=== PATIENT | female | born 1990 | race Caucasian/White ===

== ENCOUNTER → 2019-05-30 18:45 | Outpatient (BNVA) | payer SELFPAY | PROVIDERS: Visit Provider Nurse Practitioner | DX: J06.9 Acute upper respiratory infection, unspecified (principal); R05 Cough; R50.9 Fever, unspecified | CPT/HCPCS: 87804 ==

== ENCOUNTER 2019-11-21 18:11 | Emergency (ER) | payer SELFPAY ==
[2019-11-21 18:15] VITALS: BP 123/82; PULSE 75; RESP 17; TEMP 36.8; O2SAT 100
[2019-11-21 18:16] VITALS: BP 144/93; PULSE 76; RESP 14; TEMP 36.9; O2SAT 98; BMI 31.3
--- NOTE | 2019-11-21 18:29 | ED_ITS ---
HPI - Abdominal Pain General: Chief Complaint: Abdominal Pain Stated Complaint: flank pain Time Seen by Provider: 11/21/19 18:19 Source: patient Mode of arrival: ambulatory Limitations: no limitations History of Present Illness: HPI narrative: 28-year-old female was sent here from the urgent care for flank pain. States that flank pain is started today and is in her left flank. It radiates to her groin. She denies any tenderness. States pain is an 8 out of 10. She is had some nausea no vomiting. Denies any fever. MD elicited complaint: abdominal pain and flank pain Pertinent past history: diverticulitis Onset (ago): hour(s) Pain Consistency: constant Location: L flank Severity: severe Quality: stabbing Radiation: other (groin) Exacerbating factors: nothing Relieving factors: nothing Associated Symptoms: Denies chills, dysuria and fever(s) Review of Systems Const: Denies: fever(s), chills, body aches or change in appetite Eyes: Denies: blurry vision or eye discomfort ENMT: Denies: throat pain or dental pain Card: Denies: chest pain Resp: Denies: dyspnea GI: Reports: abdominal pain : Denies: dysuria Musc: Denies: neck pain or back pain Skin/Breast: Denies: rash Neuro: Denies: headache(s) Psych: Denies: depression Meliton/Lymph: Denies: easy bruising All/Imm: Denies: urticaria PFS ED PFSH: Social History (Updated 11/21/19 @ 17:19 by Brittni Ferguson LPN) Smoking and tobacco status: never smoked Alcohol intake: never Physical Exam Const: COMMON NORMALS: no acute distress, patient oriented x3 and healthy appearing HENMT: COMMON NORMALS: normocephalic and atraumatic HEAD & SCALP: normocephalic and atraumatic Eye: COMMON NORMALS: Equal, round and reactive pupils present and EOMs intact bilaterally PUPIL: Yes Equal, round and reactive pupils present Neck/C-Spine: COMMON NORMALS: full ROM and supple Chest: COMMONS NORMALS: normal inspection of the chest and normal palpation of entire chest wall Resp: COMMON NORMALS: normal respiratory effort, No retractions, No use of accessory muscles and clear to auscultation bilaterally AUSCULTATION: clear to auscultation bilaterally Cardio: COMMON NORMALS: regular rate, regular rhythm and No murmurs present (Cardio) RATE: regular rate RHYTHM: regular rhythm GI: COMMON NORMALS: Normal to inspection, nondistended, normoactive bowel sounds present, Soft to palpation, non-tender and no masses PALPATION: Yes Soft to palpation Extremity: COMMON NORMALS: normal to inspection and full ROM Neuro: COMMON NORMALS: patient oriented x3, moves all extremities and no focal motor deficits Psych: COMMON NORMALS: mental status grossly normal, Normal thought process present and cooperative THOUGHT PROCESS: Normal thought process present Skin: COMMON NORMALS: no rashes or lesions noted and no wounds GENERAL SKIN EXAM: no rashes or lesions noted Course Vital Signs: Vital signs: Vital Signs Temperature 98.5 F 11/21/19 18:16 Pulse Rate 80 11/21/19 20:03 Respiratory Rate 20 H 11/21/19 20:03 Blood Pressure 133/94 11/21/19 20:03 Pulse Oximetry 98 11/21/19 20:03 MDM - Abdominal Pain MDM Narrative: Medical decision making narrative: Patient presents with abdominal pain likely from constipation. Exam here is benign with no tenderness. CT showed a kidney stone and urinalysis and blood count are normal. We will place her on MiraLAX and she is to follow-up with primary care doctor in 2 to 4 days. She is return in 24 hours for repeat abdominal exam if she continues to have pain. Patient understands agrees to plan. Lab Data: Labs: Lab Results 11/21/19 11/21/19 11/21/19 Range/Units 19:10 19:10 19:13 WBC 9.9 (4.0-10.0) 10^3/ uL RBC 4.22 (4.1-5.3) 10^6/u L Hgb 12.6 (11.5-15.3) g/dL Hct 38.7 (37.0-47.0) % MCV 91.7 (81-99) fL MCH 29.9 (28.0-34.0) pg MCHC 32.6 (30.0-36.0) g/dL RDW 11.8 L (12.1-15.1) % Plt Count 311 (130-400) 10^3/c mm MPV 10.2 (7.4-10.4) fL Neut % (Auto) 50.5 % Lymph % (Auto) 40.1 % [place] % (Auto) 6.7 % Eos % (Auto) 2.0 % Baso % (Auto) 0.5 % Neut # (Auto) 4.99 (1.8-7.7) 10^3/u L Lymph # (Auto) 4.0 (0.8-4.8) 10^3/u L [place] # (Auto) 0.7 (0.2-0.9) 10^3/u L Eos # (Auto) 0.2 (0.0-0.8) 10^3/u L Baso # (Auto) 0.1 (0.0-0.1) 10^3/u L Nucleated RBC % (a uto) 0 % Nucleated RBCs # 0.0 /100WBC Sodium (136-145) mmol/L Potassium (3.5-5.1) mmol/L Chloride (98-107) mmol/L Carbon Dioxide (22-29) mmol/L Anion Gap (5-19) BUN (6-20) mg/dL Creatinine (0.5-0.9) mg/dL GFR Calculation (90-130) mL/min Glucose (65-115) mg/dL Calculated Osmolal ity (285-295) mOsm/k g Calcium (8.5-10.5) mg/dL Total Bilirubin (0.15-1.2) mg/dL AST (0-32) U/L ALT (0-33) U/L Alkaline Phosphata se (35-105) IU/L Total Protein (6.6-8.7) g/dL Albumin (3.5-5.2) g/dL Globulin (1.3-4.6) g/dL Lipase (13-60) U/L HCG, Qual Negative (Negative) Urine Color Straw (Yellow) Urine Appearance Clear (CLEAR) Urine pH 6.5 (5-7) Ur Specific Gravit y 1.015 (1.005-1.030) Urine Protein Neg (Negative) Urine Glucose (UA) Norm (Normal) Urine Ketones Negative (Negative) Urine Blood Neg (Negative) Urine Nitrate Negative (Negative) Urine Bilirubin Neg (NEGATIVE) Urine Urobilinogen Norm (Negative) mg/dL Ur Leukocyte Misty ase Negative (Negative) 11/21/19 Range/Units 19:13 WBC (4.0-10.0) 10^3/ uL RBC (4.1-5.3) 10^6/u L Hgb (11.5-15.3) g/dL Hct (37.0-47.0) % MCV (81-99) fL MCH (28.0-34.0) pg MCHC (30.0-36.0) g/dL RDW (12.1-15.1) % Plt Count (130-400) 10^3/c mm MPV (7.4-10.4) fL Neut % (Auto) % Lymph % (Auto) % [place] % (Auto) % Eos % (Auto) % Baso % (Auto) % Neut # (Auto) (1.8-7.7) 10^3/u L Lymph # (Auto) (0.8-4.8) 10^3/u L [place] # (Auto) (0.2-0.9) 10^3/u L Eos # (Auto) (0.0-0.8) 10^3/u L Baso # (Auto) (0.0-0.1) 10^3/u L Nucleated RBC % (a uto) % Nucleated RBCs # /100WBC Sodium 137 (136-145) mmol/L Potassium 3.6 (3.5-5.1) mmol/L Chloride 100 (98-107) mmol/L Carbon Dioxide 26 (22-29) mmol/L Anion Gap 14.6 (5-19) BUN 10 (6-20) mg/dL Creatinine 0.7 (0.5-0.9) mg/dL GFR Calculation 98.9 (90-130) mL/min Glucose 89 (65-115) mg/dL Calculated Osmolal ity 279 L (285-295) mOsm/k g Calcium 9.5 (8.5-10.5) mg/dL Total Bilirubin 0.3 (0.15-1.2) mg/dL AST 19 (0-32) U/L ALT 13 (0-33) U/L Alkaline Phosphata se 66 (35-105) IU/L Total Protein 7.2 (6.6-8.7) g/dL Albumin 4.6 (3.5-5.2) g/dL Globulin 2.6 (1.3-4.6) g/dL Lipase 19 (13-60) U/L HCG, Qual (Negative) Urine Color (Yellow) Urine Appearance (CLEAR) Urine pH (5-7) Ur Specific Gravit y (1.005-1.030) Urine Protein (Negative) Urine Glucose (UA) (Normal) Urine Ketones (Negative) Urine Blood (Negative) Urine Nitrate (Negative) Urine Bilirubin (NEGATIVE) Urine Urobilinogen (Negative) mg/dL Ur Leukocyte Misty ase (Negative) Imaging Data ^: CT Abd/Pel: Radiologist's impression: [address] [address] [address] Scan Report Signed Patient: Ela Greene Unit #: [id number] : 1990 [id number] Age/Sex: 28 / F ADM Date: 11/21/19 Loc: ER Room/Bed: Attending Dr: Ordering Provider/Ordering MD: Von Christopher MD Date of Service: 11/21/19 Procedure(s): CT kidney stone 71103 Accession Number(s): [id number] Report Number: [id number] PROCEDURE INFORMATION: Exam: CT Abdomen And Pelvis Without Contrast Exam date and time: 11/21/2019 6:31 PM Age: 28 years old Clinical indication: Nausea; Abdominal pain; Flank; Left; Prior surgery; Surgery type: Appy, tubal; Patient HX: HX diverticulitis; Additional info: L flank pain TECHNIQUE: Imaging protocol: Computed tomography of the abdomen and pelvis without contrast. Radiation optimization: All CT scans at this facility use at least one of these dose optimization techniques: automated exposure control; mA and/or kV adjustment per patient size (includes targeted exams where dose is matched to clinical indication); or iterative reconstruction. COMPARISON: CT Abdomen/Pelvis Renal [id number] 12/22/2016 2:21 PM RADIATION DOSE METRICS: Total DLP (mGy-cm): 1578.22 FINDINGS: The lung bases are clear. The visualized bony structures are unremarkable. There is no liver mass. There is no intrahepatic biliary dilatation. No gallstones are seen within the gallbladder. The pancreas is unremarkable. The spleen is unremarkable. There is no adrenal mass. There is no hydronephrosis. There are no renal calculi. There is no perinephric stranding. There is no renal mass. The ureters are normal in caliber. No calculi are seen along the course of the ureters. The bladder is unremarkable. The aorta is normal in caliber. The IVC is normal in caliber. There is no retroperitoneal adenopathy. There is no mesenteric adenopathy. The stomach is unremarkable. The small bowel loops in the upper abdomen are nondistended with no bowel wall thickening. Feces is seen throughout the colon. Colonic diverticuli are present. Within the pelvis:The patient is status post appendectomy. The uterus is unremarkable. There is a 2.3 cm right ovarian cyst. The left adnexa is unremarkable. The click free fluid There is no inguinal adenopathy. There is no pelvic adenopathy. Feces is seen within the rectosigmoid. CT/CT kidney stone [id number] IMPRESSION: 1. No hydronephrosis. No renal or ureteral calculi. Please note the lack of IV contrast limits evaluation of the renal parenchyma for pyelonephritis. 2. Moderate fecal burden suggesting constipation. 3. Colonic diverticulosis. No evidence for acute diverticulitis. Discharge Plan Discharge Patient Disposition: Home Clinical Impression: Constipation Qualifiers: Constipation type: unspecified constipation type Qualified Code(s): K59.00 - Constipation, unspecified Condition: Stable Prescriptions: New Miralax 17 gram/dose powder 17 gm PO DAILY PRN (Reason: constipation) Qty: 119 RF: 0 Naprosyn 500 mg tablet 500 mg PO BID PRN (Reason: pain) Qty: 20 RF: 0 No Action bupropion HCl [Wellbutrin SR] 150 mg tablet sustained-release 12 hr 150 mg PO DAILY RF: 0 buprenorphine HCl 2 mg tablet, sublingual 2 mg SUBLINGUAL DAILY RF: 0 valacyclovir 500 mg tablet 500 mg PO DAILY RF: 0 Discharge Orders: Discharge Order (Routine); Ordered 11/21/19 Ordered By: Von Christopher Referrals: Leilani Garibay FNP [Primary Care Provider] - 1-3 days Discharge Diet: Advance as tolerated Discharge Activity: Resume usual activity Patient Instructions: Constipation (ED) Discharge Date/Time: 11/21/19 20:21 Coding Level of Care Code ED Cash Posting Representative for Chg Fwd Exam Comprehensive
[2019-11-21 19:17] LABS: Add Urine Microscopic? NO
[2019-11-21] MEDS: sodium chloride 0.9% 1,000 ML 999 ML IV (19:28)
[2019-11-21] MEDS: ondansetron 2 mg/ML SDV 2 mL 4 MG IVP (19:28)
[2019-11-21 19:31] LABS: Bilirubin Urine Neg (NEGATIVE); Blood Urine Neg (Negative); Glucose Urine UA Norm (Normal); HCG Qualitative Urine. Negative (Negative); Ketones Urine Negative (Negative); Leukocyte Esterase Urine Negative (Negative); Nitrate Urine Negative (Negative); Protein Urine Neg (Negative); Specific Gravity, Urine 1.015 (1.005-1.030); Urine Appearance Clear (CLEAR); Urine Color Straw (Yellow); Urobilinogen Urine Norm (Negative); pH Urine 6.5 (5-7)
[2019-11-21 19:37] LABS: Alanine Aminotransferase 13 U/L (0-33); Albumin Level 4.6 g/dL (3.5-5.2); Alkaline Phosphatase 66 IU/L (35-105); Anion Gap 14.6 (5-19); Aspartate Amino Transferase 19 U/L (0-32); Blood Urea Nitrogen 10 mg/dL (6-20); Calcium 9.5 mg/dL (8.5-10.5); Carbon Dioxide 26 mmol/L (22-29); Chloride 100 mmol/L (98-107); Globulin 2.6 g/dL (1.3-4.6); Glomerular Filtration Rate 98.9 mL/min (90-130); Glucose 89 mg/dL (65-115); Lipase 19 U/L (13-60); Osmolality Calculated 279 mOsm/kg (285-295); Potassium 3.6 mmol/L (3.5-5.1); Sodium 137 mmol/L (136-145); Total Bilirubin 0.3 mg/dL (0.15-1.2); Total Protein 7.2 g/dL (6.6-8.7)
[2019-11-21 19:38] LABS: Basophils # 0.1 10^3/uL (0.0-0.1); Basophils % 0.5 %; Eosinophils # 0.2 10^3/uL (0.0-0.8); Hematocrit 38.7 % (37.0-47.0); Hemoglobin 12.6 g/dL (11.5-15.3); Lymphocytes % 40.1 %; Mean Corpuscular HGB Conc 32.6 g/dL (30.0-36.0); Mean Corpuscular Hemoglobin 29.9 pg (28.0-34.0); Mean Corpuscular Volume 91.7 fL (81-99); Mean Platelet Volume 10.2 fL (7.4-10.4); Monocytes # 0.7 10^3/uL (0.2-0.9); Monocytes % 6.7 %; Neutrophils # 4.99 10^3/uL (1.8-7.7); Neutrophils % 50.5 %; Nucleated Red Blood Cells % 0 %; Platelet Count 311 10^3/cmm (130-400); Red Blood Count 4.22 10^6/uL (4.1-5.3); Red Cell Distribution Width 11.8 % (12.1-15.1); White Blood Count 9.9 10^3/uL (4.0-10.0)
[2019-11-21 19:58] VITALS: RESP 20; O2SAT 98
[2019-11-21] MEDS: HYDROmorphone 1 mg/mL INJ 1 mL IVP (19:58)
[2019-11-21 20:03] VITALS: BP 133/94; PULSE 80; RESP 20; O2SAT 98
== END 2019-11-21 20:21 | disposition home or self-care (01) ==
PROVIDERS: Emergency Provider Emergency Medicine; PCP Nurse Practitioner
DX: K59.00 Constipation, unspecified (principal)
CPT/HCPCS: 12345; 74176; 80053; 81000; 81003; 81025; 83690; 85025; 96361; 96374; 96375; 99283; J1170; J2405; J7030

== ENCOUNTER → 2020-12-06 14:35 | Outpatient (BNVA) | payer MEDICAID, SELFPAY | PROVIDERS: PCP Physician Assistant Medical; Visit Provider Nurse Practitioner | DX: R10.9 Unspecified abdominal pain (principal) | CPT/HCPCS: 81000 ==

== ENCOUNTER → 2021-08-04 15:24 | Outpatient (BNVA) | payer MEDICAID, SELFPAY | PROVIDERS: PCP Physician Assistant Medical; Visit Provider Family Medicine | DX: N89.8 Other specified noninflammatory disorders of vagina (principal) | CPT/HCPCS: 81000; 87086; 87491; 87591; 87661 ==

== ENCOUNTER → 2021-08-20 16:17 | Outpatient (BNVA) | payer MEDICAID, SELFPAY | PROVIDERS: PCP Physician Assistant Medical; Visit Provider Family Medicine | DX: J02.9 Acute pharyngitis, unspecified (principal) | CPT/HCPCS: 87880 ==

== ENCOUNTER 2022-09-07 13:12 | Emergency (ER) | payer MEDICAID, SELFPAY ==
[2022-09-07] VITALS (46 sets, daily range): BP systolic 109–142; BP diastolic 73–104; PULSE 69–92; RESP 13–27; TEMP 36.6; O2SAT 96–100; BMI 30.4
--- NOTE | 2022-09-07 13:24 | ECG_ITS ---
[facility] Test Date: 2022-09-07 Pat Name: Ela Interiano Department: Room: Gender: Female Cylinder Honer: : 1990 Requested By: Scooby Ness Order Number: [id number] Tanya MD: Edwin Lainez M.D. Measurements Intervals [place] Rate: 85 P: 125 [place]: 130 QRS: 119 QRSD: 86 T: 84 QT: 343 QTc: 408 Interpretive Statements SINUS RHYTHM LEFT POSTERIOR FASCICULAR BLOCK [QRS AXIS > 109, INFERIOR Q] INTERPRETATION BASED ON A DEFAULT AGE OF 40 YEARS No previous ECG available for comparison Electronically Signed On 09-08-2022 0:10:00 CDT by Edwin Lainez M.D. [id number]
--- NOTE | 2022-09-07 13:35 | XRR_ITS ---
PROCEDURE INFORMATION: Exam: XR Chest Exam date and time: 09/07/2022 2:03 PM Age: 31 years old Clinical indication: Angina; Additional info: Cp TECHNIQUE: Imaging protocol: Radiologic exam of the chest. Views: 1 view. COMPARISON: CT kidney stone [id number] 11/21/2019 7:33 PM FINDINGS: Lungs: Unremarkable. No consolidation. Pleural spaces: Unremarkable. No pleural effusion. No pneumothorax. Heart/Mediastinum: Unremarkable. No cardiomegaly. Bones/joints: Unremarkable. XR/XR chest 1V portable [id number] IMPRESSION: No acute findings.
--- NOTE | 2022-09-07 14:35 | W.ED.CHESTPA ---
Documented by User: Demetrius Velasquez DO 09/08/22 05:56 HPI - Chest Pain General: Chief Complaint: Chest Pain Stated Complaint: CP, SOB Time Seen by Provider: 09/07/22 14:13 Source: patient Mode of arrival: ambulatory History of Present Illness: MD complaint: chest pain Onset (ago): hour(s) Timing of current episode: episodic Onset: during rest Pain location: substernal Pain radiation: back Severity: moderate Quality: sharp Exacerbating factors: inspiration and supine Associated symptoms: Deny abdominal pain, diaphoresis, dyspnea, fever(s), leg edema, nausea, palpitations, sense of impending doom, syncope or vomiting Review of Systems Const: Denies: fever(s), chills, fatigue, malaise or diaphoresis ENMT: Denies: throat pain, ear or mastoid pain, nasal discharge or nasal congestion Card: Reports: chest pain; Denies: palpitations, irregular heart rhythm, edema, swelling of feet/ankles or syncope Resp: Reports: pain on inspiration; Denies: dyspnea, productive cough or non-productive cough GI: Denies: abdominal pain, nausea or vomiting : Denies: flank pain, difficulty voiding, dysuria, urinary frequency or urinary urgency Skin/Breast: Denies: rash or pruritus PFSH ED PFSH: Social History Smoking and tobacco status: current every day smoker Alcohol intake: never Substance/Drug Use: never Physical Exam Const: GENERAL APPEARANCE: cooperative and comfortable ORIENTATION/CONSCIOUSNESS: Yes awake, Yes oriented to person, Yes oriented to place and Yes oriented to time HENMT: COMMON NORMALS: normocephalic, atraumatic and hearing grossly normal bilaterally HEAD & SCALP: normocephalic and atraumatic Resp: COMMON NORMALS: normal respiratory effort, No retractions, No use of accessory muscles and clear to auscultation bilaterally AUSCULTATION: clear to auscultation bilaterally Cardio: COMMON NORMALS: regular rate, regular rhythm and No murmurs present (Cardio) RATE: regular rate RHYTHM: regular rhythm GI: COMMON NORMALS: Soft to palpation and No hepatosplenomegaly present AUSCULTATION: Yes normoactive bowel sounds PALPATION: Yes Soft to palpation, No Tenderness to palpation present (GI), No Guarding due to palpation present (GI) and Yes No hepatosplenomegaly present Extremity: COMMON NORMALS: normal to inspection, capillary refill normal, no clubbing, cyanosis or edema, no calf tenderness and no pedal edema Neuro: SENSORIUM/ORIENTATION: Yes oriented to person, Yes oriented to place and Yes oriented to time Skin: COMMON NORMALS: no rashes or lesions noted GENERAL SKIN EXAM: no rashes or lesions noted Course Vital Signs: Vital signs: Vital Signs Temperature 97.8 F 09/07/22 13:33 Pulse Rate 77 09/07/22 17:10 Respiratory Rate 15 09/07/22 17:10 Blood Pressure 109/75 09/07/22 17:55 Pulse Oximetry 97 09/07/22 17:55 Oxygen Delivery Me thod Room Air 09/07/22 13:33 MDM - Chest Pain Medical Decision Making Patient presents with atypical chest pain that sounds more pleuritic in nature she is very concerned about potential for cardiac. Troponins initially negative EKG unremarkable. Pending second troponin. Care signed out to Dr. Christpoher at change of shift. See final notes for diagnosis and disposition. Patient presents here with chest pain very atypical in nature her troponins here are negative x-rays normal as well. She is well-appearing here in no distress she is turned over to me to follow 2-hour Trope she is stable for discharge she is to follow-up with her PCP and return if worsening. Lab Data 09/07/22 14:29 09/07/22 14:29 Radiology Impressions Chest X-Ray 09/07/22 13:35 IMPRESSION: No acute findings. Laboratory Results WBC 9.6 10^3/uL (4.0-10.0) 09/07/22 14:29 RBC 4.54 10^6/uL (4.1-5.3) 09/07/22 14:29 Hgb 13.5 g/dL (11.5-15.3) 09/07/22 14:29 Hct 41.6 % (37.0-47.0) 09/07/22 14:29 MCV 91.6 fl (81-99) 09/07/22 14: MCH 29.7 pg (28.0-34.0) 09/07/22 14: MCHC 32.5 g/dL (30.0-36.0) 09/07/22 14: RDW 12.5 % (12.1-15.1) 09/07/22 14: Plt Count 257 10^3/cmm (130-400) 09/07/22 14: MPV 10.5 fL (7.4-10.4) H 09/07/22 14: Neut % (Auto) 61.9 % 09/07/22 14: Lymph % (Auto) 29.9 % 09/07/22 14: [place] % (Auto) 5.6 % 09/07/22 14: Eos % (Auto) 1.9 % 09/07/22 14: Baso % (Auto) 0.4 % 09/07/22 14: Neut # (Auto) 5.95 10^3/uL (1.8-7.7) 09/07/22 14: Lymph # (Auto) 2.9 10^3/uL (0.8-4.8) 09/07/22 14: [place] # (Auto) 0.5 10^3/uL (0.2-0.9) 09/07/22 14: Eos # (Auto) 0.2 10^3/uL (0.0-0.8) 09/07/22 14: Baso # (Auto) 0.0 10^3/uL (0.0-0.1) 09/07/22 14: Nucleated RBC % (auto) 0 % 09/07/22 14: Nucleated RBCs # 0.0 /100WBC 09/07/22 14: Sodium 136 mmol/L (136-145) 09/07/22 14: Potassium 3.8 mmol/L (3.5-5.1) 09/07/22 14: Chloride 103 mmol/L (98-107) 09/07/22 14: Carbon Dioxide 24 mmol/L (22-29) 09/07/22 14: Anion Gap 12.8 (5-19) 09/07/22 14:29 BUN 10 mg/dL (6-20) 09/07/22 14: Creatinine 0.6 mg/dL (0.5-0.9) 09/07/22 14: GFR Calculation 115.9 mL/min (90-130) 09/07/22: Glucose 90 mg/dL (65-115) 09/07/22 14:29 Calculated Osmolality 281 mOsm/kg (285-295) L 09/07/22 14: Calcium 8.7 mg/dL (8.5-10.5) 09/07/22 14:29 Total Bilirubin 0.2 mg/dL (0.15-1.2) 09/07/22 14: AST 18 U/L (0-32) 09/07/22 14: ALT 16 U/L (0-33) 09/07/22 14:29 Alkaline Phosphatase 78 U/L (35-105) 09/07/22 14:29 Troponin T Baseline 6 ng/L (0-10) 09/07/22 14: Troponin T 120 Minute 6.00 ng/L (0-10) 09/07/22 17:00 Delta Troponin T 0 ABS# (0-10) 09/07/22 17:00 NT-Pro-B Natriuret Pep 80 pg/mL (0-125) 09/07/22 14: Total Protein 6.5 g/dL (6.6-8.7) L 09/07/22 14: Albumin 3.9 g/dL (3.5-5.2) 09/07/22 14: Globulin 2.6 g/dL (1.3-4.6) 09/07/22 14:29 Discharge Plan Discharge Patient Disposition: Home Clinical Impression: Chest pain Condition: Stable Prescriptions: No Action buprenorphine-naloxone 4-1 mg film 1 film SUBLINGUAL DAILY buprenorphine HCl 8 mg tablet, sublingual 8 mg SUBLINGUAL DAILY buprenorphine HCl 2 mg tablet, sublingual 2 mg SUBLINGUAL DAILY ondansetron HCl [Zofran] 4 mg tablet 4 mg PO Q8H buprenorphine HCl 2 mg tablet, sublingual 2 mg SUBLINGUAL DAILY metoprolol succinate 25 mg tablet extended release 24 hr 25 mg PO DAILY levothyroxine 100 mcg tablet 100 mcg PO DAILY Discharge Orders: Discharge ED (Routine); Ordered 09/07/22 Ordered By: Von Christopher Referrals: Vivian Robledo MD [Primary Care Provider] - 1-3 days Discharge Diet: Advance as tolerated Discharge Activity: Resume usual activity Patient Instructions: Chest Pain (ED) Coding Level of Care Code ED Dog Races Manager for Chg Fwd Documented by User: Von Christopher MD 09/07/22 18:13 HPI - Chest Pain General: Chief Complaint: Chest Pain Stated Complaint: CP, SOB Time Seen by Provider: 09/07/22 14:13 History of Present Illness: . PFSH ED PFSH: Social History Smoking and tobacco status: current every day smoker Alcohol intake: never Substance/Drug Use: never Course Vital Signs: Vital signs: Vital Signs Temperature 97.8 F 09/07/22 13:33 Pulse Rate 77 09/07/22 17:10 Respiratory Rate 15 09/07/22 17:10 Blood Pressure 109/75 09/07/22 17:55 Pulse Oximetry 97 09/07/22 17:55 Oxygen Delivery Me thod Room Air 09/07/22 13:33 MDM - Chest Pain Medical Decision Making Patient presents here with chest pain very atypical in nature her troponins here are negative x-rays normal as well. She is well-appearing here in no distress she is turned over to me to follow 2-hour Trope she is stable for discharge she is to follow-up with her PCP and return if worsening. Medical Records I reviewed the patient's medical records. Lab Data I reviewed the patient's lab results. 09/07/22 14:29 09/07/22 14:29 Radiology Impressions Chest X-Ray 09/07/22 13:35 IMPRESSION: No acute findings. Laboratory Results WBC 9.6 10^3/uL (4.0-10.0) 09/07/22 14:29 RBC 4.54 10^6/uL (4.1-5.3) 09/07/22 14:29 Hgb 13.5 g/dL (11.5-15.3) 09/07/22 14: Hct 41.6 % (37.0-47.0) 09/07/22 14: MCV 91.6 fl (81-99) 09/07/22 14: MCH 29.7 pg (28.0-34.0) 09/07/22 14: MCHC 32.5 g/dL (30.0-36.0) 09/07/22 14: RDW 12.5 % (12.1-15.1) 09/07/22 14: Plt Count 257 10^3/cmm (130-400) 09/07/22 14: MPV 10.5 fL (7.4-10.4) H 09/07/22 14: Neut % (Auto) 61.9 % 09/07/22 14: Lymph % (Auto) 29.9 % 09/07/22 14: [place] % (Auto) 5.6 % 09/07/22 14: Eos % (Auto) 1.9 % 09/07/22 14: Baso % (Auto) 0.4 % 09/07/22 14: Neut # (Auto) 5.95 10^3/uL (1.8-7.7) 09/07/22 14: Lymph # (Auto) 2.9 10^3/uL (0.8-4.8) 09/07/22 14: Foster # (Auto) 0.5 10^3/uL (0.2-0.9) 09/07/22 14: Eos # (Auto) 0.2 10^3/uL (0.0-0.8) 09/07/22 14: Baso # (Auto) 0.0 10^3/uL (0.0-0.1) 09/07/22 14: Nucleated RBC % (auto) 0 % 09/07/22 14: Nucleated RBCs # 0.0 /100WBC 09/07/22 14: Sodium 136 mmol/L (136-145) 09/07/22 14: Potassium 3.8 mmol/L (3.5-5.1) 09/07/22 14: Chloride 103 mmol/L (98-107) 09/07/22 14: Carbon Dioxide 24 mmol/L (22-29) 09/07/22 14: Anion Gap 12.8 (5-19) 09/07/22 14: BUN 10 mg/dL (6-20) 09/07/22 14: Creatinine 0.6 mg/dL (0.5-0.9) 09/07/22 14: GFR Calculation 115.9 mL/min (90-130) 09/07/22 14: Glucose 90 mg/dL (65-115) 09/07/22 14: Calculated Osmolality 281 mOsm/kg (285-295) L 09/07/22 14: Calcium 8.7 mg/dL (8.5-10.5) 09/07/22 14: Total Bilirubin 0.2 mg/dL (0.15-1.2) 09/07/22 14: AST 18 U/L (0-32) 09/07/22 14: ALT 16 U/L (0-33) 09/07/22 14: Alkaline Phosphatase 78 U/L (35-105) 09/07/22 14: Troponin T Baseline 6 ng/L (0-10) 09/07/22 14: Troponin T 120 Minute 6.00 ng/L (0-10) 09/07/22 17:00 Delta Troponin T 0 ABS# (0-10) 09/07/22 17:00 NT-Pro-B Natriuret Pep 80 pg/mL (0-125) 09/07/22 14: Total Protein 6.5 g/dL (6.6-8.7) L 09/07/22 14: Albumin 3.9 g/dL (3.5-5.2) 09/07/22 14: Globulin 2.6 g/dL (1.3-4.6) 09/07/22 14:29 Discharge Plan Discharge Patient Disposition: Home Clinical Impression: Chest pain Condition: Stable Prescriptions: No Action buprenorphine-naloxone 4-1 mg film 1 film SUBLINGUAL DAILY buprenorphine HCl 8 mg tablet, sublingual 8 mg SUBLINGUAL DAILY buprenorphine HCl 2 mg tablet, sublingual 2 mg SUBLINGUAL DAILY ondansetron HCl [Zofran] 4 mg tablet 4 mg PO Q8H buprenorphine HCl 2 mg tablet, sublingual 2 mg SUBLINGUAL DAILY metoprolol succinate 25 mg tablet extended release 24 hr 25 mg PO DAILY levothyroxine 100 mcg tablet 100 mcg PO DAILY Discharge Orders: Discharge ED (Routine); Ordered 09/07/22 Ordered By: Von Christopher Referrals: Vivian Robledo MD [Primary Care Provider] - 1-3 days Discharge Diet: Advance as tolerated Discharge Activity: Resume usual activity Patient Instructions: Chest Pain (ED) Coding Level of Care Code ED Dog Races Manager for Ly Fierro
[2022-09-07 15:07] LABS: Basophils % 0.4 %; Eosinophils # 0.2 10^3/uL (0.0-0.8); Eosinophils % 1.9 %; Hematocrit 41.6 % (37.0-47.0); Hemoglobin 13.5 g/dL (11.5-15.3); Lymphocytes # 2.9 10^3/uL (0.8-4.8); Lymphocytes % 29.9 %; Mean Corpuscular HGB Conc 32.5 g/dL (30.0-36.0); Mean Corpuscular Hemoglobin 29.7 pg (28.0-34.0); Mean Corpuscular Volume 91.6 fl (81-99); Mean Platelet Volume 10.5 fL (7.4-10.4); Monocytes # 0.5 10^3/uL (0.2-0.9); Monocytes % 5.6 %; Neutrophils # 5.95 10^3/uL (1.8-7.7); Neutrophils % 61.9 %; Nucleated Red Blood Cells % 0 %; Platelet Count 257 10^3/cmm (130-400); Red Blood Count 4.54 10^6/uL (4.1-5.3); Red Cell Distribution Width 12.5 % (12.1-15.1); White Blood Count 9.6 10^3/uL (4.0-10.0)
--- NOTE | 2022-09-07 15:35 | ECG_ITS ---
[facility] Test Date: 2022-09-07 Pat Name: Ela Interiano Department: Room: Gender: Female Insole Tape Stitcher [place]: : 1990 Requested By: Scooby Ness Order Number: [id number] Tanya MD: David Lacey M.D. Measurements Intervals [place] Rate: 77 P: 55 [place]: 185 QRS: 58 QRSD: 94 T: 40 QT: 361 QTc: 409 Interpretive Statements SINUS RHYTHM Compared to ECG 09/07/2022 13:24:43 Left posterior fascicular block no longer present Electronically Signed On 09-08-2022 17:01:57 CDT by David Lacey M.D. [email or web address]/store/[id number]
[2022-09-07 15:39] LABS: Troponin(5th) Baseline 6 ng/L (0-10)
[2022-09-07 15:46] LABS: Alanine Aminotransferase 16 U/L (0-33); Albumin Level 3.9 g/dL (3.5-5.2); Alkaline Phosphatase 78 U/L (35-105); Anion Gap 12.8 (5-19); Aspartate Amino Transferase 18 U/L (0-32); Blood Urea Nitrogen 10 mg/dL (6-20); Calcium 8.7 mg/dL (8.5-10.5); Carbon Dioxide 24 mmol/L (22-29); Chloride 103 mmol/L (98-107); Globulin 2.6 g/dL (1.3-4.6); Glomerular Filtration Rate 115.9 mL/min (90-130); Glucose 90 mg/dL (65-115); NT Pro B Type Natriuretic Pept 80 pg/mL (0-125); Osmolality Calculated 281 mOsm/kg (285-295); Potassium 3.8 mmol/L (3.5-5.1); Sodium 136 mmol/L (136-145); Total Bilirubin 0.2 mg/dL (0.15-1.2); Total Protein 6.5 g/dL (6.6-8.7)
[2022-09-07] MEDS: ondansetron 2 mg/ML SDV 2 mL 4 MG IVP (16:46)
[2022-09-07] MEDS: ketorolac 30 mg/mL INJ IVP (16:46)
[2022-09-07 18:08] LABS: Troponin 5 2HR Delta 0 ABS# (0-10)
== END 2022-09-07 18:38 | disposition home or self-care (01) ==
PROVIDERS: Emergency Medicine; Emergency Provider Emergency Medicine; PCP Family Medicine
DX: R07.9 Chest pain, unspecified (principal); F17.210 Nicotine dependence, cigarettes, uncomplicated
CPT/HCPCS: 36415; 71045; 80053; 83880; 84484; 85025; 93005; 96374; 96375; 99285; J1885; J2405

== ENCOUNTER 2022-10-13 14:50 | Emergency (ER) | payer MEDICAID, SELFPAY ==
[2022-10-13 14:58] VITALS: BP 112/72; PULSE 100; RESP 20; TEMP 36.6; O2SAT 99
== END 2022-10-13 15:16 | disposition left against medical advice (07) ==
LOC: ER 14:56
PROVIDERS: Emergency Provider Family Medicine; PCP Family Medicine
DX: Z53.21 Procedure and treatment not carried out due to patient leaving prior to being seen by health care provider (principal)
CPT/HCPCS: 99283

== ENCOUNTER 2023-02-05 10:27 | Outpatient (CLI) | payer MEDICAID, SELFPAY ==
--- NOTE | 2023-02-05 10:41 | US_ITS ---
WS: [id number] THYROID ULTRASOUND HISTORY: HYPOTHYROIDISM COMPARISON: None available. Right lobe: 2.1 cm x 2.1 cm x 5.8 cm (w x ap x l). Volume: 13.4 cm3. Moderately enlarged gland. Heterogeneity throughout the gland. There are mixed areas of increased and decreased echogenicity. There are a few fibrous septa. Mild nodularity gland. No increased vasculari ty. Left lobe: 2.2 cm x 2.3 cm x 4.9 cm (w x ap x l). Volume: 12.6 cm3. Moderately enlarged gland. There are few echogenic fibrous septa. No discrete nodule or mass. No incr eased vascularity. Isthmus: 0.7 cm. No enlarged cervical lymph nodes. IMPRESSION: 1. Enlarged heterogeneous thyroid. 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 2. There is no increased vascularity within the gland to suggest Graves' disease. Slightly nodular bu t not typical for multinodular goiter. There is no discrete mass for which biopsy can be directed at this time.
== END 2023-02-05 10:28 | disposition home or self-care (01) ==
LOC: RAD 10:29
PROVIDERS: PCP Family Medicine; Visit Provider Nurse Practitioner Family
DX: E03.8 Other specified hypothyroidism (principal)
CPT/HCPCS: 76536

== ENCOUNTER 2023-09-22 07:37 | Outpatient (CLI) | payer OTHER, SELFPAY ==
--- NOTE | 2023-09-22 | ECG_ITS ---
[facility] Test Date: 2023-09-22 Pat Name: Ela Interiano Department: Room: Gender: Female Director Supplier Quality: : 1990 Requested By: Jocelyn Fajardo Order Number: [id number] Tanya WILHELM: Interpretive Statements Lung unchanged pre/post procedure; Intraprocedure shortess of breath; Symptoms resoled by discharge [id number]
--- NOTE | 2023-09-22 07:38 | NMCV_ITS ---
NM tejas perf SPECT r/s* [id number] Ela Interiano Age: 32 Gender: F : 1990 Exam Date: 09/22/2023 08:30 Ordering Phys: Jocelyn Evangelista Technologist: JEREMIAH Kenyon Exam Location: [facility] Indications: CHEST PAIN STRESS TEST Please see separate stress test report in [facility] for full findings IMAGE PROTOCOL Rest/Stress 1 Exercise Day Radiopharmaceutical Dose (mCi) Administration Site Administered by Rest: Tc-99m 10.6 IV JEREMIAH Hartley Sestamibi Stress:Tc-99m 32.8 IV JEREMIAH Hartley Sestamimukesh Rest: 22-Sep-2023 60 Discovery 630 Stress: 22-Sep-2023 15 Discovery 630 Radiopharmaceutical was injected at 87 % maximum heart rate. Images obtained in supine and prone position. SPECT RESULTS Technical Quality: Excellent Raw Data Analysis: Normal Image Corrections: No attenuation or motion correction applied Summed Stress Score: 0 Summed Rest Score: 0 Summed Difference Score: 0 PERFUSION FINDINGS There is reduced radiotracer uptake in anterior wall on resting images that improved significantly on stress images. This is consistent with attenuation artifact in anterior wall. No evidence of ischemia. FUNCTIONAL RESULTS (calculated via Gated SPECT) Stress Image LV EF (%): 72 Stress EDV (mL):114 TID: 0.84 Stress ESV (mL):32 FUNCTIONAL FINDINGS: There is normal left ventricular systolic function. IMPRESSIONS 1. Attenuation artifact seen in the anterior wall. No evidence of ischemia. 2. LV systolic function is normal David Lacey MD (Electronically Signed) Final Date: 22 Sep 2023 10:54 S
[2023-09-22 08:03] VITALS: BMI 36.3
[2023-09-22 10:20] VITALS: BP 123/68; PULSE 99
== END 2023-09-22 07:38 | disposition home or self-care (01) ==
LOC: CDL 07:37
PROVIDERS: PCP Nurse Practitioner Family; Visit Provider Nurse Practitioner Family
DX: R07.9 Chest pain, unspecified (principal)
CPT/HCPCS: 36415; 78452; 93017; 96374; A9500

== ENCOUNTER 2024-10-13 12:55 | Outpatient (CLI) | payer OTHER, SELFPAY ==
--- NOTE | 2024-10-13 13:03 | USR_ITS ---
PROCEDURE INFORMATION: Exam: US Pelvis, Complete, Non-Obstetric Exam date and time: 10/13/2024 1:09 PM Age: 33 years old Clinical indication: Pelvic pain; Additional info: Pelvic perineal pain TECHNIQUE: Imaging protocol: Transabdominal pelvic nonobstetric ultrasound. Complete exam. Real time ultrasound with image documentation. COMPARISON: CT kidney stone [id number] 11/21/2019 7:33 PM FINDINGS: Uterus: Uterus is normal. Endometrial stripe is normal. Right ovary/adnexa: Obscured. Left ovary/adnexa: Ovary is normal. No mass. Normal blood flow. Intraperitoneal space: No intraperitoneal fluid. Urinary bladder: Normal. US/US pelvic complete* [id number] IMPRESSION: No acute findings.
== END 2024-10-13 12:56 | disposition home or self-care (01) ==
LOC: RAD 12:59
PROVIDERS: PCP Nurse Practitioner Family; Visit Provider Nurse Practitioner Family
DX: R10.2 Pelvic and perineal pain (principal)
CPT/HCPCS: 76856

== ENCOUNTER 2025-01-29 11:42 | Outpatient (CLI) | payer OTHER, SELFPAY ==
--- NOTE | 2025-01-29 12:17 | US_ITS ---
WS: [id number] THYROID ULTRASOUND HISTORY: GOITER COMPARISON: 02/05/2023 Right lobe: 2.4 cm x 2.6 cm x 6.1 cm (w x ap x l). Volume: 17.9 cm3. Moderately enlarged heterogeneous thyroid. No discrete nodules. Very heterogeneous gland with mild increased vascularity. Linear fibrous septa are reidentified. Left lobe: 2.2 cm x 2.4 cm x 5.5 cm (w x ap x l). Volume: 14.0 cm3. Moderately enlarged thyroid. Nodular thyroid without a discrete nodule. Increased vascularity within the gland. Isthmus: 0.6 cm. US/US thyroid [id number] IMPRESSION: 1. Enlarged heterogeneous thyroid with increased vascularity. Suspect chronic Cat's thyroiditis. 2. No discrete well-formed mass or nodule for biopsy. The entire gland is nodu lar. Similar appearance as compared to the prior study but the vascularity is m ore prominent on today's exam.
== END 2025-01-29 11:43 | disposition home or self-care (01) ==
LOC: RAD 11:43
PROVIDERS: PCP Nurse Practitioner Family; Visit Provider Nurse Practitioner Family
DX: E04.2 Nontoxic multinodular goiter (principal)
CPT/HCPCS: 76536

== ENCOUNTER 2025-02-13 08:11 | Outpatient (CLI) | payer OTHER, SELFPAY ==
[2025-02-13 09:00] LABS: Thyroid Stimulating Hormone 4.64 uIU/mL (0.27-4.20)
== END 2025-02-13 08:12 | disposition home or self-care (01) ==
PROVIDERS: PCP Nurse Practitioner Family; Visit Provider Internal Medicine Endocrinology, Diabetes & Metabolism
DX: E06.3 Autoimmune thyroiditis (principal); E05.20 Thyrotoxicosis with toxic multinodular goiter without thyrotoxic crisis or storm; E66.811 Obesity, class 1
CPT/HCPCS: 36415; 84443